=== PATIENT | male | born 1960 | race Caucasian/White ===

== ENCOUNTER 2021-06-23 05:38 | Day surgery (SDC) | payer OTHER, SELFPAY ==
[~2021-06-23] VITALS: Ht 177.8 cm; Wt 95.3 kg
[2021-06-23] MEDS ORDERED: fentaNYL citrate 0.05 MG/ML VIAL ONE (07:24)
[2021-06-23] MEDS ORDERED: MIDAZOLAM 5 MG/5 ML VIAL ONE (07:24)
[2021-06-23] MEDS ORDERED: diphenhydrAMINE 50 MG/ML VIAL ONE (07:24)
[2021-06-23] MEDS ORDERED: LIDOCAINE 2% 100 MG/5 ML UJET TP ONE (07:24)
[2021-06-23] MEDS ORDERED: MIDAZOLAM 2 MG/2 ML VIAL IVP ONE (08:55)
[2021-06-23] MEDS ORDERED: fentaNYL citrate 0.05 MG/ML VIAL IVP ONE (08:55)
== END 2021-06-23 09:40 | disposition home or self-care (01) ==
LOC: MOR 05:38 → MMU 06:04 → MOR 09:40
PROVIDERS: ATTEND Internal Medicine Gastroenterology
DX: Z12.11 Encounter for screening for malignant neoplasm of colon (principal); K63.5 Polyp of colon; K57.30 Diverticulosis of large intestine without perforation or abscess without bleeding; K64.9 Unspecified hemorrhoids; Z86.010 Personal history of colon polyps; I25.10 Atherosclerotic heart disease of native coronary artery without angina pectoris; Z95.1 Presence of aortocoronary bypass graft; K21.9 Gastro-esophageal reflux disease without esophagitis; Z87.11 Personal history of peptic ulcer disease; F17.210 Nicotine dependence, cigarettes, uncomplicated; Z79.02 Long term (current) use of antithrombotics/antiplatelets; Z79.899 Other long term (current) drug therapy
CPT/HCPCS: 45385; 87426; 88305; J2250; J3010; J1200

== ENCOUNTER 2022-07-15 07:29 | Outpatient (CLI) | payer OTHER ==
[2022-07-15 08:04] LABS: BASOPHILS # (AUTO) 0.1 K/uL (0.00-0.22); BASOPHILS % (AUTO) 1.4 % (0.0-2.0); EOSINOPHILS # (AUTO) 0.2 K/uL (0-0.4); EOSINOPHILS % (AUTO) 4.3 % (0.0-4.0); HEMATOCRIT 47.1 % (36-52); HEMOGLOBIN 15.8 g/dL (12.0-18.0); LYMPHOCYTES # (AUTO) 1.7 K/uL (2.0-11.5); LYMPHOCYTES % (AUTO) 33.7 % (20.5-51.1); MEAN CORPUSCULAR HEMOGLOBIN 31 pg (27-31); MEAN CORPUSCULAR HGB CONC 34 g/dL (33-37); MEAN CORPUSCULAR VOLUME 91.7 fL (80-94); MONOCYTES # (AUTO) 0.5 K/uL (0.8-1.0); MONOCYTES % (AUTO) 9.8 % (1.7-9.3); NEUTROPHILS # (AUTO) 2.5 K/uL (1.8-7.7); NEUTROPHILS % (AUTO) 50.8 % (42.2-75.2); PLATELET COUNT (AUTO) 138 K/uL (140-450); RED BLOOD CELL COUNT(AUTO) 5.14 MIL/uL (4.20-6.10); RED CELL DISTRIBUTION WIDTH 14.9 % (11.6-13.7)
[2022-07-15 08:33] LABS: ALBUMIN 3.5 g/dL (3.4-5.0); ANION GAP 8.3 (8-16); BILIRUBIN,DIRECT 0.1 mg/dL (0.0-0.3); CHOL/HDL RATIO 5.4 (1-4.5); POTASSIUM 4.3 mmol/L (3.5-5.1); TOTAL BILIRUBIN 0.3 mg/dL (0.0-1.0)
== END 2022-07-15 20:46 | disposition home or self-care (01) ==
LOC: MLB 07:29
PROVIDERS: ATTEND Internal Medicine
DX: Z00.00 Encounter for general adult medical examination without abnormal findings (principal)
CPT/HCPCS: 36415; 80053; 80076; 84153; 85025